=== PATIENT | female | born 1990 | race Caucasian/White ===

== ENCOUNTER 2024-07-24 16:32 | Emergency (ER) | payer OTHER | END 2024-07-24 19:16 | disposition home or self-care (01) | LOC: NAV ERS 16:32 | DX: S90.121A Contusion of right lesser toe(s) without damage to nail, initial encounter (principal); I10 Essential (primary) hypertension; F41.8 Other specified anxiety disorders; F43.10 Post-traumatic stress disorder, unspecified; W20.8XXA Other cause of strike by thrown, projected or falling object, initial encounter | CPT/HCPCS: 90471 ==